=== PATIENT | male | born 1960 | race Caucasian/White ===

== ENCOUNTER 2023-08-26 07:27 | Outpatient (RCR) | payer BC, SELFPAY | END 2023-10-14 15:15 | disposition home or self-care (01) | LOC: PT 07:27 | PROVIDERS: PCP Family Medicine; Visit Provider Family Medicine | DX: M47.22 Other spondylosis with radiculopathy, cervical region (principal); R29.3 Abnormal posture; M54.2 Cervicalgia | CPT/HCPCS: 97012; 97110; 97161; 97530 ==